=== PATIENT | male | born 1975 | race Caucasian/White ===

== ENCOUNTER 2023-04-06 12:45 | Emergency (ER) | payer OTHER ==
[~2023-04-06] VITALS: Ht 175.3 cm; Wt 77.0 kg
[2023-04-06 12:51] VITALS: TEMP 97.9; O2SAT 100
[2023-04-06] MEDS ORDERED: KETOROLAC 30MG/ML VIAL IV STA (12:56)
[2023-04-06] MEDS ORDERED: SODIUM CHLORIDE 0.9% 1,000 ML IV ONE (13:00)
[2023-04-06 14:00] LABS: BASOPHILS % 0.2 % (0.0-2.0); HEMATOCRIT. 51.1 % (42.0-52.0); HEMOGLOBIN. 16.7 g/dL (14.0-18.0); LYMPHOCYTES % 7.4 % (20.0-50.0); MEAN CORPUSCULAR HGB CONC 32.6 g/dL (31.0-37.0); MEAN PLATELET VOLUME 9.5 fl (7.4-10.4); MONOCYTES % 3.8 % (2.0-8.0); NEUTROPHILS % 85.6 % (40.0-76.0); PLATELET 333 x1000/uL (130-400); RED BLOOD CELL COUNT 5.38 mill/uL (4.7-6.1); WHITE BLOOD COUNT 14.9 x1000/uL (4.5-11.0)
[2023-04-06 14:01] LABS: ALANINE AMINOTRANSFERASE 12 IU/L (10-49); ALBUMIN 4.8 g/dL (3.2-4.8); ASPARTATE AMINOTRANSFERASE 14 IU/L (<34); BILIRUBIN TOTAL 0.5 mg/dL (0.1-1.0); CALCIUM 9.4 mg/dL (8.7-10.4); CARBON DIOXIDE 19 mEq/L (21-32); CHLORIDE 110 mEq/L (98-107); CREATININE 1.7 mg/dL (0.6-1.3); GLUCOSE 107 mg/dL (70-105); POTASSIUM 4.2 mEq/L (3.5-5.1); SODIUM 139 mEq/L (136-145); UREA NITROGEN BLOOD 19 mg/dL (9-23)
[2023-04-06 16:24] LABS: CLARITY URINE CLOUDY (CLEAR); COLOR URINE YELLOW (YELLOW); GLUCOSE URINE NEGATIVE (NEGATIVE); KETONES URINE NEGATIVE (NEGATIVE); LEUKOCYTE ESTERASE URINE NEGATIVE (NEGATIVE); NITRITE URINE NEGATIVE (NEGATIVE); OCCULT BLOOD URINE NEGATIVE (NEGATIVE); PH URINE 5.5 (4.5-8.0); PROTEIN URINE 2+ (NEGATIVE); SPECIFIC GRAVITY URINE 1.025 (1.005-1.030); UROBILINOGEN URINE 0.2 E.U./dL (0.2-1.0)
[2023-04-06 16:29] LABS: RBC URINE 0-2 /hpf (0-2); SQUAMOUS EPITHELIAL CELL URINE 1+ /lpf (RARE/1+); YEAST URINE NONE SEEN
[2023-04-06 16:51] LABS: BACTERIA URINE 2+
[2023-04-06 16:52] LABS: FINE GRANULAR CASTS URINE 0-5 /lpf; WBC URINE 0-2 /hpf (0-2)
[2023-04-06] MEDS ORDERED: IBUP-2028 MT (17:26)
[2023-04-06 18:10] VITALS: BP 122/76; PULSE 89; RESP 16
== END 2023-04-06 18:14 | disposition home or self-care (01) ==
LOC: ER 12:45
DX: R10.31 Right lower quadrant pain (principal); R05.9 Cough, unspecified; R19.7 Diarrhea, unspecified; Z20.822 Contact with and (suspected) exposure to COVID-19
CPT/HCPCS: 80053; 81003; 83690; 85025; 87804 ×2; 36415; 71045; 74176; 93005; 96361; 96374; 99285; 87426; J1885; J7030; C9803; Z7610